=== PATIENT | male | born 1990 | race African-American/Black ===

== ENCOUNTER 2017-03-07 17:47 | Emergency (ER) | payer SELFPAY ==
[~2017-03-07] VITALS: Ht 180.3 cm; Wt 77.1 kg
--- NOTE | 2017-03-07 18:48 | NUR ---
pt to er bed 21. c/o sob. possible asthma exacerbation. placed on monitor. stable vitals. awaiting md daugherty.
--- NOTE | 2017-03-07 18:55 | NUR ---
topher berkowitz at bedside for eval.
[2017-03-07] MEDS ORDERED: ALBUTEROL FS 2.5 MG/3 ML VIAL.NEB ONE (19:45)
[2017-03-07] MEDS ORDERED: IPRATROPIUM NEB FS 0.5 MG/2.5 ML AMPUL.NEB ONE (19:45)
[2017-03-07] MEDS: ALBUTEROL FS 2.5 MG/3 ML VIAL.NEB NEB ONE (19:46)
[2017-03-07] MEDS: IPRATROPIUM NEB FS 0.5 MG/2.5 ML AMPUL.NEB NEB ONE (19:46)
--- NOTE | 2017-03-07 19:46 | NUR ---
rt at bedside for breathing treatment.
[2017-03-07 20:21] VITALS: BP 136/77
--- NOTE | 2017-03-07 20:21 | NUR ---
Patient discharged to home in stable condition. Written and verbal after care instructions given. Patient verbalizes understanding of instruction.
== END 2017-03-07 20:22 | disposition home or self-care (01) ==
LOC: ER 17:49
DX: J45.901 Unspecified asthma with (acute) exacerbation (principal)
CPT/HCPCS: 94640; 99283; A4606 ×2; Z7610 ×2